=== PATIENT | male | born 2000 | race Caucasian/White ===

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

== ENCOUNTER → 2024-05-15 | Outpatient (CLI) | payer BC ==
--- NOTE | 2024-05-15 10:50 | XR ---
EXAMINATION TYPE: XR abdomen 1V DATE OF EXAM: 05/15/2024 9:34 AM COMPARISON: CLINICAL INDICATION: Male, 24 years old with history of [id number] GEN ABD PAIN; [facility] TECHNIQUE: One radiographic view of the abdomen was obtained. FINDINGS: The bowel gas pattern is nonspecific without dilated loops of small or large bowel. . Fecal material and gas are demonstrated throughout the colon and rectum. There is no evidence for organome otilia or pneumoperitoneum. The osseous structures are intact. No abnormal calcifications are present . IMPRESSION: Nonspecific bowel gas pattern without radiographic evidence for acute process. [facility], , 05/15/2024 10:48 AM
== END | disposition home or self-care (01) ==
LOC: RADXRYALE 09:13
PROVIDERS: ATTEND Physician Assistant Medical
DX: R10.84 Generalized abdominal pain (principal)
CPT/HCPCS: 74018